=== PATIENT | male | born 1950 | race Caucasian/White ===

== ENCOUNTER 2020-01-31 10:49 | Outpatient (CLI) | payer MEDICARE, OTHER, SELFPAY | END 2020-01-31 10:50 | disposition home or self-care (01) | PROVIDERS: Family Provider Family Medicine; PCP Family Medicine; Visit Provider Family Medicine | DX: E11.59 Type 2 diabetes mellitus with other circulatory complications (principal); Z79.4 Long term (current) use of insulin | CPT/HCPCS: 36415; 82985 ==

== ENCOUNTER → 2020-07-04 10:22 | Outpatient (BNVA) | payer MEDICARE, OTHER, SELFPAY | PROVIDERS: Family Provider Family Medicine; PCP Family Medicine; Visit Provider Registered Nurse | DX: E11.9 Type 2 diabetes mellitus without complications (principal); E03.9 Hypothyroidism, unspecified | CPT/HCPCS: 80053; 80061; 82306; 83036; 83721; 84443; 85025 ==

== ENCOUNTER → 2020-08-28 11:24 | Outpatient (BNVA) | payer MEDICARE, OTHER, SELFPAY | PROVIDERS: Family Provider Family Medicine; PCP Family Medicine; Visit Provider Nurse Practitioner Family | DX: E78.1 Pure hyperglyceridemia (principal); E11.9 Type 2 diabetes mellitus without complications | CPT/HCPCS: 84443; 84478 ==

== ENCOUNTER → 2021-02-19 11:05 | Outpatient (BNVA) | payer MEDICARE, OTHER, SELFPAY | PROVIDERS: Family Provider Family Medicine; PCP Family Medicine; Visit Provider Nurse Practitioner Family | DX: E11.9 Type 2 diabetes mellitus without complications (principal); I10 Essential (primary) hypertension; E78.5 Hyperlipidemia, unspecified; E03.9 Hypothyroidism, unspecified; Z12.5 Encounter for screening for malignant neoplasm of prostate; Z79.01 Long term (current) use of anticoagulants; Z51.81 Encounter for therapeutic drug level monitoring | CPT/HCPCS: 80053; 80061; 82043; 83036; 84443; 85025; G0103 ==

== ENCOUNTER → 2021-05-20 10:23 | Outpatient (BNVA) | payer MEDICARE, OTHER, SELFPAY | PROVIDERS: Family Provider Family Medicine; PCP Nurse Practitioner Family; Visit Provider Nurse Practitioner Family | DX: N28.9 Disorder of kidney and ureter, unspecified (principal); E11.9 Type 2 diabetes mellitus without complications; R06.09 Other forms of dyspnea; I10 Essential (primary) hypertension; E03.9 Hypothyroidism, unspecified; M25.50 Pain in unspecified joint; Z79.01 Long term (current) use of anticoagulants; Z79.899 Other long term (current) drug therapy | CPT/HCPCS: 80053; 83036; 84443; 85025; 86038; 86431 ==

== ENCOUNTER 2021-07-22 10:23 | Outpatient (CLI) | payer MEDICARE, OTHER, SELFPAY ==
[2021-07-22 10:50] LABS: Basophils % 0.4 %; Eosinophils # 0.4 10^3/uL (0.0-0.8); Eosinophils % 5.5 %; Hemoglobin 12.9 g/dL (11.7-16.6); Lymphocytes # 1.8 10^3/uL (0.8-4.8); Lymphocytes % 23.5 %; Mean Corpuscular HGB Conc 32.3 g/dL (30.0-36.0); Mean Corpuscular Hemoglobin 28.4 pg (28.0-34.0); Mean Corpuscular Volume 88.1 fl (80-94); Monocytes # 0.4 10^3/uL (0.2-0.9); Monocytes % 5.4 %; Neutrophils # 5.02 10^3/uL (1.8-7.7); Neutrophils % 64.7 %; Nucleated Red Blood Cells % 0 %; Platelet Count 226 10^3/cmm (130-400); Red Blood Count 4.54 10^6/uL (4.1-5.3); Red Cell Distribution Width 12.8 % (12.1-15.1); White Blood Count 7.8 10^3/uL (4.0-10.0)
[2021-07-23 11:32] LABS: Anti-Double Strand DNA AB 1 IU/mL; Jo-1 Antibody <1.0 NEG AI (<1.0 NEG); SM/RNP Antibodies <1.0 NEG AI (<1.0 NEG); SS-B/LA IGG <1.0 NEG AI (<1.0 NEG); Scleroderma Ab(Scl-70) Ab <1.0 NEG AI (<1.0 NEG); Ss-A/Ro Igg <1.0 NEG AI (<1.0 NEG)
[2021-07-23 15:43] LABS: Immunoglobulin E 361 kU/L (<OR=114)
== END 2021-07-22 10:24 | disposition home or self-care (01) ==
LOC: LAB 10:32
PROVIDERS: PCP Nurse Practitioner Family; Visit Provider Internal Medicine Pulmonary Disease
DX: J84.9 Interstitial pulmonary disease, unspecified (principal); R06.00 Dyspnea, unspecified; R06.02 Shortness of breath
CPT/HCPCS: 36415; 82785; 85025; 86225; 86235

== ENCOUNTER → 2021-08-20 00:01 | Outpatient (BNVA) | payer MEDICARE, OTHER, SELFPAY | PROVIDERS: PCP Nurse Practitioner Family; Visit Provider Nurse Practitioner Family | DX: E03.9 Hypothyroidism, unspecified (principal); E11.9 Type 2 diabetes mellitus without complications; I10 Essential (primary) hypertension | CPT/HCPCS: 80053; 83036; 84443 ==

== ENCOUNTER → 2021-08-22 09:29 | Outpatient (BNVA) | payer MEDICARE, OTHER, SELFPAY | PROVIDERS: PCP Nurse Practitioner Family; Visit Provider Internal Medicine Pulmonary Disease | DX: Z01.812 Encounter for preprocedural laboratory examination (principal); Z20.822 Contact with and (suspected) exposure to COVID-19 | CPT/HCPCS: 87635 ==

== ENCOUNTER 2021-08-28 08:00 | Outpatient (CLI) | payer MEDICARE, OTHER, SELFPAY ==
--- NOTE | 2021-08-28 10:45 | PFTS_ITS ---
Date of Study:08/28/21 Date of Dictation: MECHANICS: Forced vital capacity (FVC) is normal. Forced expiratory volume in one second (FEV1) is normal. FEV1/FVC is normal. FLOW VOLUME LOOP: Normal. LUNG VOLUMES: Total lung capacity (TLC) is normal. Residual volume (RV) is increased. DIFFUSING CAPACITY FOR CARBON MONOXIDE: Normal. INTERPRETATION: The prebronchodilator spirometry is normal. Lung volumes are consistent with air trapping. Gas exchange (DLCO) is normal. MTDD
== END 2021-08-28 08:01 | disposition home or self-care (01) ==
LOC: RT 08:03
PROVIDERS: PCP Nurse Practitioner Family; Visit Provider Internal Medicine Pulmonary Disease
DX: R06.00 Dyspnea, unspecified (principal)
CPT/HCPCS: 94010; 94618; 94726; 94729

== ENCOUNTER 2021-08-30 08:19 | Outpatient (CLI) | payer MEDICARE, OTHER, SELFPAY ==
[2021-08-30] MEDS: iohexol 300 mg/mL 100 mL Btl IV (08:58)
[2021-08-30] MEDS: iohexol 300 mg/mL 50 mL Btl PO (08:58)
--- NOTE | 2021-08-30 10:00 | CT_ITS ---
WS: [id number] CT scan of the abdomen with Oral and IV contrast. Additional two-dimensional coronal and sagittal rec onstruction was performed. 08/30/2021 Clinical Data: R10.9 - Unspecified abdominal pain Comparison: None. DLP: 879.[address] scans at [facility] use at least one of these dose optimization techniques: automated e xposure control; mA and/or kV adjustment per patient size (includes targeted exams where dose is matc hed to clinical indication); or iterative reconstruction. Findings: The lower lungs show no nodules, masses or effusions. The liver, gallbladder, spleen, adrenal glands and pancreas are normal. The kidneys show equal bilateral contrast excretion with no cyst or masses. The abdominal aorta is normal in size with minimal calcification and mural thrombus. No appendicitis or diverticulitis is seen. Oral contrast is in the stomach and small bowel and there is no bowel dilatation. No abscess, adenopathy, ascites, mass, obstruction or free air is seen. The bones of the lower thorax and lumbar spine show osteoarthritic spurring. CT/CT abdomen w con* [id number] Impression: Negative for acute intra-abdominal abnormalities.
== END 2021-08-30 08:20 | disposition home or self-care (01) ==
PROVIDERS: PCP Nurse Practitioner Family; Visit Provider Nurse Practitioner Family
DX: R10.9 Unspecified abdominal pain (principal)
CPT/HCPCS: 74160; Q9967

== ENCOUNTER 2021-09-18 13:13 | Outpatient (CLI) | payer MEDICARE, OTHER, SELFPAY ==
[2021-09-18 14:13] LABS: C Reactive Protein 0.3 mg/L (0.0-4.9); Creatine Phosphokinase 87 U/L (39-308)
[2021-09-20 12:48] LABS: Aldolase 2.5 U/L (< OR = 8.1)
[2021-09-20 14:27] LABS: Alternaria Alternata (M6) Ige 0.13 kU/L; Alternaria Class 0/1; Bermuda Class 0; Bermuda Grass (G2) Ige <0.10 kU/L; Cat Dander (E1) Ige <0.10 kU/L; Cat Dander Class 0; Common Ragweed (Short) (W1) Ig <0.10 kU/L; D. Farinae Class 0; Dermatophagoides Class 0; Dermatophagoides Farinae (D2) <0.10 kU/L; Dermatophagoides Pteronyssinus <0.10 kU/L; Dog Dander (E5) Ige <0.10 kU/L; Dog Dander Class 0; Elm (T8) Ige <0.10 kU/L; Elm Class 0; English Plantain (W9) Ige <0.10 kU/L; English Plantain Class 0; House Dust (Greer) (H1) Ige <0.10 kU/L; House Dust (Hollister- Stier) <0.10 kU/L; House Dust Class 0; Immunoglobulin E 291 kU/L (<OR=114); Johnson Grass (G10) Ige <0.10 kU/L; Johnson Grass Cl 0; June Grass Class 0; June Grass(Kentucky Blue) (G8) <0.10 kU/L; Lamb'S Quarters (Goose Foot) <0.10 kU/L; Lamb'S Quarters Class 0; Maple (Box Elder) (T1) Ige <0.10 kU/L; Maple Class 0; Meadow Fescue (G4) Ige <0.10 kU/L; Meadow Fescue Class 0; Mucor Racemosus Class 0; Oak (T7) Ige <0.10 kU/L; Oak Class 0; Orchard Grass (Cocksfoot) (G3) <0.10 kU/L; Penicillium Class 0; Penicillium Notatum (M1) Ige <0.10 kU/L; Perennial Rye Grass (G5) Ige <0.10 kU/L; Perennial Rye Grass Class 0; Ragweeed Class 0; Rough Marsh Elder (W16) Ige <0.10 kU/L; Rough Marsh Elder Class 0; Sweet Vernal Class 0; Sweet Vernal Grass (G1) Ige <0.10 kU/L; Timothy Grass (G6) Ige <0.10 kU/L; Timothy Grass Class 0
[2021-09-23 12:17] LABS: Erythrocyte Sedimentation Rate 2 mm/hr (0-10)
[2021-09-25 19:32] LABS: Aspergillus Fumigatus, Igg Ab, 11.4 mg/L (<=102)
== END 2021-09-18 13:14 | disposition home or self-care (01) ==
LOC: LAB 13:18
PROVIDERS: Internal Medicine Pulmonary Disease; PCP Nurse Practitioner Family; Visit Provider Nurse Practitioner Family
DX: M25.641 Stiffness of right hand, not elsewhere classified (principal); M25.642 Stiffness of left hand, not elsewhere classified; R06.02 Shortness of breath; T78.40XA Allergy, unspecified, initial encounter
CPT/HCPCS: 36415; 82085; 82550; 82785; 83516; 85651; 86003; 86140

== ENCOUNTER → 2021-11-08 10:54 | Outpatient (BNVA) | payer MEDICARE, OTHER, SELFPAY | PROVIDERS: PCP Nurse Practitioner Family; Visit Provider Nurse Practitioner Family | DX: R05.9 Cough, unspecified (principal); Z20.822 Contact with and (suspected) exposure to COVID-19; E11.9 Type 2 diabetes mellitus without complications | CPT/HCPCS: 87486; 87581; 87633 ==

== ENCOUNTER 2021-11-16 12:02 | Outpatient (CLI) | payer MEDICARE, OTHER, SELFPAY ==
[2021-11-16 13:15] LABS: Creatinine Urine, Random 169 mg/dL (39-259)
[2021-11-16 13:19] LABS: Anion Gap 16.4 (5-19); Blood Urea Nitrogen 40 mg/dL (8-23); Calcium 8.9 mg/dL (8.5-10.5); Carbon Dioxide 26 mmol/L (22-29); Chloride 98 mmol/L (98-107); Glomerular Filtration Rate 46.3 mL/min (90-130); Glucose 154 mg/dL (65-115); Phosphorus 4.3 mg/dL (2.5-4.5); Potassium 4.4 mmol/L (3.5-5.1); Sodium 136 mmol/L (136-145)
[2021-11-16 13:38] LABS: Calcium 9.8 mg/dL (8.5-10.5)
[2021-11-16 13:45] LABS: Parathyroid Hormone 24.3 pg/mL (15-65)
== END 2021-11-16 12:03 | disposition home or self-care (01) ==
PROVIDERS: PCP Nurse Practitioner Family; Visit Provider Internal Medicine Nephrology
DX: N18.31 Chronic kidney disease, stage 3a (principal)
CPT/HCPCS: 80069; 82310; 82575; 83970

== ENCOUNTER 2021-12-23 07:06 | Outpatient (CLI) | payer MEDICARE, OTHER, SELFPAY ==
--- NOTE | 2021-12-23 07:29 | US_ITS ---
WS: [id number] RENAL ULTRASOUND HISTORY: STAGE 3A CHRONIC KIDNEY DZ COMPARISON: None available. TECHNIQUE: 2-D and color Doppler imaging of the kidney submitted. Right kidney: 10.5 cm x 4.0 cm x 5.4 cm. Normal echogenicity with no hydronephrosis or mass. Left kidney: 9.5 cm x 4.3 cm x 4.4 cm. Normal echogenicity with no hydronephrosis or mass. Aorta: Normal. Urinary Bladder: Normal distention. Mildly enlarged heterogeneous prostate gland. Prostate measures 4.4 x 4.0 x 4.5 cm. Variable echogeni [place] throughout the prostate gland and the surface is lobulated. US/US renal BI* [id number] IMPRESSION: 1. Normal renal ultrasound. 2. Mildly enlarged heterogeneous prostate gland.
== END 2021-12-23 07:07 | disposition home or self-care (01) ==
PROVIDERS: PCP Nurse Practitioner Family; Visit Provider Internal Medicine Nephrology
DX: N18.31 Chronic kidney disease, stage 3a (principal); N40.0 Benign prostatic hyperplasia without lower urinary tract symptoms
CPT/HCPCS: 76770

== ENCOUNTER → 2021-12-30 10:14 | Outpatient (BNVA) | payer MEDICARE, OTHER, SELFPAY | PROVIDERS: PCP Nurse Practitioner Family; Visit Provider Internal Medicine Pulmonary Disease | DX: R06.00 Dyspnea, unspecified (principal); E03.9 Hypothyroidism, unspecified; E11.22 Type 2 diabetes mellitus with diabetic chronic kidney disease; J45.40 Moderate persistent asthma, uncomplicated; T78.40XA Allergy, unspecified, initial encounter; M25.641 Stiffness of right hand, not elsewhere classified; M25.642 Stiffness of left hand, not elsewhere classified; I10 Essential (primary) hypertension; E78.5 Hyperlipidemia, unspecified; Z87.891 Personal history of nicotine dependence; X58.XXXA Exposure to other specified factors, initial encounter; Z79.01 Long term (current) use of anticoagulants | CPT/HCPCS: 99214 ==

== ENCOUNTER → 2022-03-28 08:45 | Outpatient (BNVA) | payer MEDICARE, OTHER, SELFPAY | PROVIDERS: PCP Nurse Practitioner Family; Visit Provider Nurse Practitioner Family | DX: E78.5 Hyperlipidemia, unspecified (principal); I10 Essential (primary) hypertension; E11.22 Type 2 diabetes mellitus with diabetic chronic kidney disease; R53.83 Other fatigue; E03.9 Hypothyroidism, unspecified | CPT/HCPCS: 80053; 80061; 83036; 84443; 85025 ==

== ENCOUNTER 2022-05-03 10:20 | Outpatient (CLI) | payer MEDICARE, OTHER, SELFPAY ==
[2022-05-03 10:51] LABS: Basophils % 0.5 %; Eosinophils # 0.2 10^3/uL (0.0-0.8); Eosinophils % 2.5 %; Hematocrit 38.4 % (42.0-52.0); Hemoglobin 12.2 g/dL (11.7-16.6); Lymphocytes # 1.6 10^3/uL (0.8-4.8); Lymphocytes % 26.5 %; Mean Corpuscular HGB Conc 31.8 g/dL (30.0-36.0); Mean Corpuscular Hemoglobin 28.2 pg (28.0-34.0); Mean Corpuscular Volume 88.9 fl (80-94); Mean Platelet Volume 9.4 fL (7.4-10.4); Monocytes # 0.4 10^3/uL (0.2-0.9); Monocytes % 6.7 %; Neutrophils # 3.77 10^3/uL (1.8-7.7); Neutrophils % 63.1 %; Nucleated Red Blood Cells % 0 %; Platelet Count 185 10^3/cmm (130-400); Red Blood Count 4.32 10^6/uL (4.1-5.3); Red Cell Distribution Width 12.7 % (12.1-15.1)
[2022-05-03 11:06] LABS: Urine Creatinine 128 mg/dL (39-259)
[2022-05-03 11:08] LABS: Albumin Level 4.4 g/dL (3.5-5.2); Anion Gap 13.4 (5-19); Blood Urea Nitrogen 18 mg/dL (8-23); Calcium 9.4 mg/dL (8.5-10.5); Carbon Dioxide 27 mmol/L (22-29); Chloride 104 mmol/L (98-107); Glucose 128 mg/dL (65-115); Phosphorus 3.2 mg/dL (2.5-4.5); Potassium 4.4 mmol/L (3.5-5.1); Sodium 140 mmol/L (136-145)
[2022-05-03 11:17] LABS: Calcium 9.2 mg/dL (8.5-10.5)
[2022-05-03 11:40] LABS: Parathyroid Hormone 50.9 pg/mL (15-65)
== END 2022-05-03 10:21 | disposition home or self-care (01) ==
PROVIDERS: PCP Nurse Practitioner Family; Visit Provider Internal Medicine Nephrology
DX: N18.31 Chronic kidney disease, stage 3a (principal)
CPT/HCPCS: 80069; 82310; 82570; 83970; 85025

== ENCOUNTER → 2022-05-14 10:02 | Outpatient (BNVA) | payer MEDICARE, OTHER, SELFPAY | PROVIDERS: PCP Nurse Practitioner Family; Visit Provider Nurse Practitioner Family | DX: N40.0 Benign prostatic hyperplasia without lower urinary tract symptoms (principal); Z12.5 Encounter for screening for malignant neoplasm of prostate | CPT/HCPCS: G0103 ==

== ENCOUNTER → 2022-06-25 09:46 | Outpatient (BNVA) | payer MEDICARE, OTHER, SELFPAY | PROVIDERS: PCP Nurse Practitioner Family; Visit Provider Nurse Practitioner Family | DX: R33.9 Retention of urine, unspecified (principal) | CPT/HCPCS: 51741; 51798; 81003; 99203 ==

== ENCOUNTER → 2022-12-01 10:44 | Outpatient (BNVA) | payer MEDICARE, OTHER, SELFPAY | PROVIDERS: PCP Nurse Practitioner Family; Visit Provider Nurse Practitioner Family | DX: E03.9 Hypothyroidism, unspecified (principal); E78.1 Pure hyperglyceridemia; E78.5 Hyperlipidemia, unspecified; I10 Essential (primary) hypertension; J45.40 Moderate persistent asthma, uncomplicated; Z79.899 Other long term (current) drug therapy; E11.8 Type 2 diabetes mellitus with unspecified complications | CPT/HCPCS: 80053; 80061; 83036; 84443; 85025 ==

== ENCOUNTER → 2023-03-04 16:26 | Outpatient (BNVA) | payer MEDICARE, OTHER, SELFPAY | PROVIDERS: PCP Nurse Practitioner Family; Visit Provider Nurse Practitioner Family | DX: E11.22 Type 2 diabetes mellitus with diabetic chronic kidney disease (principal); I10 Essential (primary) hypertension | CPT/HCPCS: 80053 ==

== ENCOUNTER → 2023-11-04 09:44 | Outpatient (BNVA) | payer MEDICARE, OTHER, SELFPAY | PROVIDERS: PCP Nurse Practitioner Family; Visit Provider Nurse Practitioner Family | DX: I10 Essential (primary) hypertension (principal); E03.9 Hypothyroidism, unspecified; E11.22 Type 2 diabetes mellitus with diabetic chronic kidney disease; R53.83 Other fatigue; R11.0 Nausea; E78.2 Mixed hyperlipidemia | CPT/HCPCS: 80053; 83036; 84443; 85025 ==

== ENCOUNTER 2023-12-10 14:48 | Outpatient (CLI) | payer MEDICARE, OTHER, SELFPAY ==
[2023-12-10 15:14] LABS: Basophils % 0.4 %; Eosinophils # 0.2 10^3/uL (0.0-0.8); Hematocrit 37.5 % (37-53); Lymphocytes # 1.8 10^3/uL (0.8-4.8); Lymphocytes % 26.8 %; Mean Corpuscular HGB Conc 32.8 g/dL (30-55); Mean Corpuscular Hemoglobin 28.9 pg (27-33); Mean Corpuscular Volume 88.2 fl (82-101); Mean Platelet Volume 9.4 fL (7.4-10.4); Monocytes # 0.5 10^3/uL (0.2-0.9); Monocytes % 7.9 %; Neutrophils % 61.3 %; Nucleated Red Blood Cells % 0 %; Platelet Count 219 10^3/cmm (157-399); Red Blood Count 4.25 10^6/uL (3.85-5.65); Red Cell Distribution Width 12.4 % (12.1-15.1); White Blood Count 6.69 10^3/uL (3.29-11.43)
[2023-12-10 15:38] LABS: Albumin Level 4.1 g/dL (3.5-5.2); Anion Gap 16.4 (5-19); Blood Urea Nitrogen 23 mg/dL (8-23); Calcium 9.1 mg/dL (8.5-10.5); Carbon Dioxide 23 mmol/L (22-29); Chloride 103 mmol/L (98-107); Glucose 254 mg/dL (65-115); Phosphorus 3.9 mg/dL (2.5-4.5); Potassium 4.4 mmol/L (3.5-5.1); Sodium 138 mmol/L (136-145)
[2023-12-10 15:44] LABS: Creatinine Urine, Random 196 mg/dL (39-259); Microalbum Creatinine Ratio Ur 10 mg/dL (0-20); Microalbumin Random Urine 2 ug/dL (0-20)
[2023-12-10 15:45] LABS: Calcium 9.3 mg/dL (8.5-10.5)
[2023-12-10 15:51] LABS: Parathyroid Hormone 38.4 pg/mL (15-65)
== END 2023-12-10 14:49 | disposition home or self-care (01) ==
LOC: LAB 14:54
PROVIDERS: PCP Nurse Practitioner Family; Visit Provider Internal Medicine Nephrology
DX: N18.31 Chronic kidney disease, stage 3a (principal)
CPT/HCPCS: 36415; 80069; 82044; 82310; 83970; 85025

== ENCOUNTER → 2024-01-04 08:47 | Outpatient (BNVA) | payer MEDICARE, OTHER, SELFPAY | PROVIDERS: PCP Nurse Practitioner Family; Visit Provider Nurse Practitioner Family | DX: I10 Essential (primary) hypertension (principal); E78.2 Mixed hyperlipidemia | CPT/HCPCS: 80061 ==

== ENCOUNTER → 2024-01-25 15:20 | Outpatient (BNVA) | payer MEDICARE, OTHER, SELFPAY | PROVIDERS: PCP Nurse Practitioner Family; Visit Provider Nurse Practitioner Family | DX: R06.00 Dyspnea, unspecified (principal); K21.9 Gastro-esophageal reflux disease without esophagitis | CPT/HCPCS: 93005 ==

== ENCOUNTER 2024-02-01 12:34 | Outpatient (CLI) | payer MEDICARE, OTHER, SELFPAY ==
--- NOTE | 2024-02-01 12:37 | XR_ITS ---
WS: [id number] CHEST 2 VIEWS HISTORY: R05.9 - Cough, unspecified COMPARISON: None available. Lungs: Mild pulmonary hyperexpansion. No mass or nodule. Cardiac size: Normal. Mediastinum/Aorta: Normal mediastinum. Bones: Mild degenerative changes in the spine. IMPRESSION: No acute cardiopulmonary disease.
--- NOTE | 2024-02-01 13:00 | USCV_ITS ---
Keshav Verma Age: 73 Gender: M : 1950 Exam Date: 02/01/2024 12:55 Ordering Phys: Milagros Edwards Technologist: CITLALI [place] [facility] [place]: dyspnea, unspecified BP: 158 / 84 HR: 57 Rhythm: Sinus Technical Quality: Good MEASUREMENTS (Male / Female) Normal Values 2D ECHO LV Diastolic Diameter PLAX 5.3 cm 4.2 - 5.9 / 3.9 - 5.3 cm IVS Diastolic Thickness 1.3 cm 0.6 - 1.0 / 0.6 - 0.9 cm IVS Systolic Thickness 1.8 cm LVPW Diastolic Thickness 1.1 cm 0.6 - 1.0 / 0.6 - 0.9 cm LVPW Systolic Thickness 2.2 cm LVOT Diameter 2.0 cm LV Ejection Fraction 2D Teich 79.3 % LV Ejection Fraction MOD 2C 64.7 % LV Ejection Fraction 2C AL 64.3 % LA Diameter 3.7 cm RA Systolic Volume 4C AL 17.6 ml RA Systolic Volume 4C MOD 16.7 ml LA Sys Volume AL 52.3 cm cubed LA Sys Volume Index AL 25.3 cm cubed/m squared Aorta at Sinotubular Diameter 3.0 cm IVC Diameter 1.7 cm M-MODE LA Ao Ratio MM 1.1 AV Cusp Separation MM 1.8 cm DOPPLER AV Peak Velocity 151.0 cm/s LVOT Peak Velocity 106.0 cm/s AV Area Cont Eq vti 2.8 cm squared AV Area Cont Eq pk 2.3 cm squared MV Peak Velocity 93.0 cm/s MV Area PHT 2.5 cm squared Mitral E to A Ratio 0.9 TV Peak Velocity 86.0 cm/s TR Peak Velocity 88.0 cm/s TR Peak Gradient 3.1 mmHg TR Mean Velocity 61.0 cm/s TR Mean Gradient 1.7 mmHg TR Velocity Time Integral 19.1 cm TV Peak E Velocity 60.0 cm/s Right Atrial Pressure 3.0 mmHg Pulmonary Artery Systolic Pressu 6.1 mmHg PV Peak Velocity 89.5 cm/s RV Ejection Time 0.3 s FINDINGS Left Ventricle Normal left ventricular size and systolic function, EF 64%.no regional wall motion abnormalities. Mild left ventricular hypertrophy. Grade I/IV diastolic dysfunction (abnormal relaxation filling pattern), normal to mildly elevated filling pressures. Right Ventricle The right ventricle is normal in size and function. Right Atrium The right atrium is normal in size. Left Atrium The left atrium is normal in size. Mitral Valve No gross abnormalities noted Aortic Valve No gross abnormalities noted Tricuspid Valve No gross abnormalities noted Pulmonic Valve Mild pulmonary valve regurgitation. Pericardium Normal pericardium without effusion. Aorta Normal ascending aorta dimension. IVC The inferior vena cava appears normal. CONCLUSIONS Normal left ventricular size and systolic function, EF 64%.no regional wall motion abnormalities. Mild left ventricular hypertrophy. Grade I/IV diastolic dysfunction (abnormal relaxation filling pattern), normal to mildly elevated filling pressures. Mild pulmonary valve regurgitation. No significant valvular abnormalities. Normal cardiac chamber sizes. There is no pericardial effusion. There are no intracardiac masses. No similar previous studies are available for comparison Dr Sara Kendrick MD [facility] (Electronically Signed) Final Date: 01 February 2024 17:57 S
== END 2024-02-01 12:35 | disposition home or self-care (01) ==
LOC: RAD 12:35
PROVIDERS: PCP Nurse Practitioner Family; Visit Provider Nurse Practitioner Family
DX: R06.00 Dyspnea, unspecified (principal); R05.9 Cough, unspecified; I51.7 Cardiomegaly; I37.1 Nonrheumatic pulmonary valve insufficiency
CPT/HCPCS: 71046; 93306; 99204

== ENCOUNTER 2024-02-04 09:56 | Outpatient (CLI) | payer MEDICARE, OTHER, SELFPAY ==
--- NOTE | 2024-02-04 10:15 | US_ITS ---
WS: [id number] RIGHT UPPER QUADRANT ULTRASOUND HISTORY: abdominal pain COMPARISON: None available. Liver: 16.4 cm in length. Normal size liver and echogenicity. No bile duct dilatation or mass. Portal Vein: Normal hepatopetal flow with monophasic waveform. Gallbladder: Normally distended gallbladder with no stones or wall thickening. CBD: 0.4 cm Pancreas: Completely obscured by bowel gas. Right kidney: 10.3 cm in length. Normal size and echogenicity. No hydronephrosis or mass. Aorta and IVC: Unremarkable abdominal aorta and IVC. No ascites. IMPRESSION: 1. Negative gallbladder. 2. Pancreas is obscured by bowel gas. 3. No bile duct dilatation.
== END 2024-02-04 09:57 | disposition home or self-care (01) ==
PROVIDERS: PCP Nurse Practitioner Family; Visit Provider Surgery
DX: R10.9 Unspecified abdominal pain (principal)
CPT/HCPCS: 76705

== ENCOUNTER → 2024-02-08 14:18 | Outpatient (BNVA) | payer MEDICARE, OTHER, SELFPAY | PROVIDERS: PCP Nurse Practitioner Family; Visit Provider Nurse Practitioner Family | DX: E11.22 Type 2 diabetes mellitus with diabetic chronic kidney disease (principal); R42 Dizziness and giddiness; R06.00 Dyspnea, unspecified; L98.9 Disorder of the skin and subcutaneous tissue, unspecified; Z98.890 Other specified postprocedural states | CPT/HCPCS: 82962 ==

== ENCOUNTER 2024-02-16 14:58 | Outpatient (CLI) | payer MEDICARE, OTHER, SELFPAY ==
--- NOTE | 2024-02-16 15:15 | USCV_ITS ---
Keshav Verma Age: 73 Gender: M : 1950 Exam Date: 02/16/2024 15:10 Ordering Phys: Milagros Edwards Technologist: MARIA ESTHER Exam Location: [facility] – [place] Indication: cca disease Risk Factors: Previous Vascular Surgery: Right Brachial BP: / Left Brachial BP: / Right Left Velocity (cm/s) Spectral Plaque Velocity (cm/s) Spectral Plaque Syst/Diast Broadening Syst/Diast Broadening 67.20/ 16.70 Prox CCA 62.40 / 18.60 68.50/ 16.70 Mid CCA 78.90 / 24.10 72.40/ 18.00 Hetro Distal CCA 78.90 / 16.80 Hetro 188.70/53.50 Hetro Prox ICA 116.30/ 34.40 Hetro 153.20/42.90 Mid ICA 198.30/ 37.50 131.20/36.60 Distal ICA 44.50 / 15.80 88.10 ECA 147.80 2.60 ICA/CCA 2.50 Antegrade Vertebral Antegrade 69.70/ 24.10 cm/s 69.00/ 15.40 cm/s Tri Subclavian Tri 96.00 121.0 0 FINDINGS Comparison: none available. Diffuse bilateral scattered calcified plaque and intimal thickening throughout the common carotid arteries and extending through the bifurcation. Moderate elevation of systolic velocities. Antegrade vertebral arteries. CONCLUSIONS Left ICA stenosis 50-69%. Right ICA stenosis 50-69%. Moderate carotid atherosclerosis. Dr. Reina Hayes DO (Electronically Signed) Final Date: 17 February 2024 07:43 S
== END 2024-02-16 14:59 | disposition home or self-care (01) ==
LOC: RAD 14:58
PROVIDERS: PCP Nurse Practitioner Family; Visit Provider Nurse Practitioner Family
DX: R42 Dizziness and giddiness (principal); I65.23 Occlusion and stenosis of bilateral carotid arteries
CPT/HCPCS: 93880

== ENCOUNTER 2024-02-17 09:15 | Outpatient (CLI) | payer MEDICARE, OTHER, SELFPAY ==
--- NOTE | 2024-02-17 10:00 | NM_ITS ---
WS: [email or web address] NUCLEAR MEDICINE HIDA SCAN CLINICAL INFORMATION: RUQ pain TECHNIQUE: Following intravenous administration of 8.2 mCi of technetium 99m mebrofenin, images of th e abdomen were obtained over the course of 60 minutes. Next, gallbladder ejection fraction was determ ined by obtaining preprandial and one-hour postprandial images of the gallbladder following oral rneée stion of Ensure. COMPARISON: Ultrasound 02/04/2024 FINDINGS: Normal hepatic uptake. Gallbladder is visualized by 10 minutes. No evidence of acute cholecystitis. N ormal common bile duct and small bowel activity. Normal hepatic excretion. Gallbladder ejection fraction 83% within normal limits. No evidence of chronic cholecystitis. IMPRESSION: 1. No evidence of acute or chronic cholecystitis. 2. Gallbladder ejection fraction 83% within normal limits.
== END 2024-02-17 09:16 | disposition home or self-care (01) ==
LOC: RAD 09:16
PROVIDERS: PCP Nurse Practitioner Family; Visit Provider Surgery
DX: R10.11 Right upper quadrant pain (principal)
CPT/HCPCS: 78227; A9537

== ENCOUNTER → 2024-03-04 09:06 | Outpatient (BNVA) | payer MEDICARE, OTHER, SELFPAY | PROVIDERS: PCP Nurse Practitioner Family; Visit Provider Nurse Practitioner Family | DX: L57.0 Actinic keratosis (principal); L82.0 Inflamed seborrheic keratosis; L60.3 Nail dystrophy; L82.1 Other seborrheic keratosis; L98.8 Other specified disorders of the skin and subcutaneous tissue; D22.5 Melanocytic nevi of trunk; L85.3 Xerosis cutis; L57.8 Other skin changes due to chronic exposure to nonionizing radiation | CPT/HCPCS: 17000; 17110; 99203 ==

== ENCOUNTER 2024-03-09 09:16 | Day surgery (SDC) | payer MEDICARE, OTHER, SELFPAY ==
[2024-03-09] MEDS: sodium chloride 0.9% 1,000 ML 30 ML IV (09:55)
[2024-03-09 09:56] VITALS: BP 177/82; PULSE 63; RESP 18; TEMP 36.2; O2SAT 97
[2024-03-09 10:01] LABS: Glucose Point of Care 121 mg/dL (70-110)
--- NOTE | 2024-03-09 10:48 | ANES.PREANE2 ---
Pre-Anesthetic Assessment Height/Weight: Height 1.83 m Weight 81.647 kg Temp Pulse Resp BP Pulse Ox O2 Del Method 97.1 F L 63 18 177/82 97 Room Air 03/09/24 09:56 03/09/24 09:56 03/09/24 09:56 03/09/24 09:56 03/09/24 09:56 03/09/24 09:56 Preop Diagnosis: screening, gerd Operation Date: 03/09/24 10:45 Proposed Procedures p EGD 63672, 47635, G0105, R11.2 ,12.11(Not Applicable) - Silas Davison DO s Colonoscopy(Not Applicable) - Silas Davison DO Familial anesthetic complications: none Was Beta Arianna taken within 24 hours: Yes Was Clonidine taken within 24 hours: N/A Last intake: Intake Last Liquid Date 03/08/24 Last Liquid Time 22:00 Last Solid Date 03/07/24 Last Solid Time 19:00 Social No alcohol and No tobacco previous smoker, quit 30 years ago Exam alert, oriented x 3 and clear to auscultation bilaterally Airway Mallampati: Class II Dentition: false History/ROS No significant history except as noted Pulmonary Chronic Obstructive Pulmonary Disease CV/HEM Coronary Artery Disease (stents 3 years ago) and Hypertension None reported Hepatic None reported GI Gastroesophageal Reflux Disease Metabolic Diabetes Mellitus, Hyperlipidemia and Thyroid Disease [facility] [place] None reported Neuropsych None reported Anesthetic Plan ASA status: 3 Anesthesia: Anesthesia Evaluation and MAC Risk of > 500 ml blood loss (7ml/kg in children): No Medications/Allergies Home Medications Medication Instructions Recorded Confirmed Last Taken Type aspirin 81 mg tablet,delayed 81 mg PO DAILY 11/28/19 03/08/24 03/05/24 History release cholecalciferol (vitamin D3) 1,250 1,250 mcg PO DAILY 11/28/19 03/08/24 03/07/24 History mcg (50,000 unit) capsule nitroglycerin 0.4 mg sublingual 0.4 mg sublingual Q5M PRN Chest 11/28/19 03/08/24 Unknown History tablet (Nitrostat) Pain ranolazine 500 mg tablet,extended 500 mg PO BID 06/25/22 03/08/24 03/07/24 History release,12 hr lancets 17 gauge #100 ea 08/19/23 02/24/24 Unknown Rx blood sugar diagnostic (Blood #50 ea 09/03/23 02/24/24 Unknown Rx Glucose Test strips) blood-glucose meter (Blood Glucose #1 ea 09/03/23 02/24/24 Unknown Rx Monitoring kit) pantoprazole 40 mg tablet,delayed 40 mg PO BID 6 weeks #84 tabs 02/01/24 03/08/24 03/07/24 Rx release (Protonix) albuterol sulfate 90 mcg/actuation 2 puff inhalation Q6H PRN 02/08/24 03/08/24 Unknown Rx aerosol inhaler shortness of breath or wheezing #6.7 grams meclizine 25 mg tablet 25 mg PO BID PRN dizziness #60 tabs 02/08/24 03/08/24 03/07/24 Rx insulin degludec 200 unit/mL (3 See Rx Instructions .Route 03/07/24 03/08/24 03/07/24 Rx mL) subcutaneous pen .COMPLEX #27 mL clopidogrel 75 mg tablet 75 mg PO DAILY 03/08/24 03/08/24 03/05/24 History dulaglutide 1.5 mg/0.5 mL 1.5 mg SUBCUT .WEEKLY 03/08/24 03/08/24 02/28/24 History subcutaneous pen injector (Trulicity) levothyroxine 100 mcg tablet 100 mcg PO DAILY 03/08/24 03/08/24 03/09/24 History metformin 500 mg tablet,extended 1,000 mg PO BID 03/08/24 03/08/24 03/07/24 History release 24 hr metoprolol succinate 25 mg 25 mg PO DAILY 03/08/24 03/08/24 03/09/24 History tablet,extended release 24 hr omeprazole 20 mg capsule,delayed 20 mg PO DAILY 03/08/24 03/08/24 03/07/24 History release ondansetron HCl 4 mg tablet 4 mg PO Q8H PRN Nausea 03/08/24 03/08/24 Unknown History rosuvastatin 40 mg tablet 40 mg PO DAILY 03/08/24 03/08/24 03/07/24 History tamsulosin 0.4 mg capsule 0.8 mg PO DAILY 03/08/24 03/08/24 03/07/24 History Allergies Allergy/AdvReac Type Severity Reaction Status Date / Time No Known Allergies Allergy Verified 03/09/24 09:28 Current Medications Generic Name Dose Route Start Last Admin Trade Name Jyotsna PRN Reason Stop Dose Admin Sodium Chloride 1,000 mls @ 30 mls/hr 03/09/24 09:30 03/09/24 09:55 Sodium Chloride 0.9% IV 03/10/24 09:29 30 mls/hr .Q24H PRO Administration PFSH Anesthesia Medical History Nocturnal polyuria Hypertriglyceridemia Hyperlipidemia Hypothyroid Diabetes Essential hypertension Surgical History Hx of colonoscopy History of shoulder surgery Family History Father , at age 80's Hypertension CAD (coronary artery disease) Mother , at age 75 Parkinson disease Social History Smoking and tobacco/nicotine status: former use of tobacco/nicotine Quit status (tobacco/nicotine): has quit using Year quit tobacco: 2000 Former quit date comment: 0.5ppd x 20 years Second hand smoke exposure: No Alcohol intake: never Substance/Drug Use: never Current occupational status: retired Data Anesthesia Cardiac Studies: Echocardiogram 02/01/24
--- NOTE | 2024-03-09 11:34 | PM.HP ---
Providers/Chief Complaint Primary Care Provider: CARMELO Kim Chief Complaint: R11.2, Z12.11 History of Present Illness Keshav Verma is a 73 year old male Review of Systems General: Reports: 10 or more systems reviewed and unremarkable except in HPI and below Medications/Allergies Home Medications Medication Instructions Recorded Confirmed Last Taken Type aspirin 81 mg tablet,delayed 81 mg PO DAILY 11/28/19 03/08/24 03/05/24 History release cholecalciferol (vitamin D3) 1,250 1,250 mcg PO DAILY 11/28/19 03/08/24 03/07/24 History mcg (50,000 unit) capsule nitroglycerin 0.4 mg sublingual 0.4 mg sublingual Q5M PRN Chest 11/28/19 03/08/24 Unknown History tablet (Nitrostat) Pain ranolazine 500 mg tablet,extended 500 mg PO BID 06/25/22 03/08/24 03/07/24 History release,12 hr lancets 17 gauge #100 ea 08/19/23 02/24/24 Unknown Rx blood sugar diagnostic (Blood #50 ea 09/03/23 02/24/24 Unknown Rx Glucose Test strips) blood-glucose meter (Blood Glucose #1 ea 09/03/23 02/24/24 Unknown Rx Monitoring kit) pantoprazole 40 mg tablet,delayed 40 mg PO BID 6 weeks #84 tabs 02/01/24 03/08/24 03/07/24 Rx release (Protonix) albuterol sulfate 90 mcg/actuation 2 puff inhalation Q6H PRN 02/08/24 03/08/24 Unknown Rx aerosol inhaler shortness of breath or wheezing #6.7 grams meclizine 25 mg tablet 25 mg PO BID PRN dizziness #60 tabs 02/08/24 03/08/24 03/07/24 Rx insulin degludec 200 unit/mL (3 See Rx Instructions .Route 03/07/24 03/08/24 03/07/24 Rx mL) subcutaneous pen .COMPLEX #27 mL clopidogrel 75 mg tablet 75 mg PO DAILY 03/08/24 03/08/24 03/05/24 History dulaglutide 1.5 mg/0.5 mL 1.5 mg SUBCUT .WEEKLY 03/08/24 03/08/24 02/28/24 History subcutaneous pen injector (Trulicity) levothyroxine 100 mcg tablet 100 mcg PO DAILY 03/08/24 03/08/24 03/09/24 History metformin 500 mg tablet,extended 1,000 mg PO BID 03/08/24 03/08/24 03/07/24 History release 24 hr metoprolol succinate 25 mg 25 mg PO DAILY 03/08/24 03/08/24 03/09/24 History tablet,extended release 24 hr omeprazole 20 mg capsule,delayed 20 mg PO DAILY 03/08/24 03/08/24 03/07/24 History release ondansetron HCl 4 mg tablet 4 mg PO Q8H PRN Nausea 03/08/24 03/08/24 Unknown History rosuvastatin 40 mg tablet 40 mg PO DAILY 03/08/24 03/08/24 03/07/24 History tamsulosin 0.4 mg capsule 0.8 mg PO DAILY 03/08/24 03/08/24 03/07/24 History Allergies Allergy/AdvReac Type Severity Reaction Status Date / Time No Known Allergies Allergy Verified 03/09/24 09:28 PFSH Acute PFSH: Medical History Nocturnal polyuria Hypertriglyceridemia Hyperlipidemia Hypothyroid Diabetes Essential hypertension Surgical History Hx of colonoscopy History of shoulder surgery Family History Father , at age 80's Hypertension CAD (coronary artery disease) Mother , at age 75 Parkinson disease Social History Smoking and tobacco/nicotine status: former use of tobacco/nicotine Quit status (tobacco/nicotine): has quit using Year quit tobacco: 2000 Former quit date comment: 0.5ppd x 20 years Second hand smoke exposure: No Alcohol intake: never Substance/Drug Use: never Current occupational status: retired Vitals/I&O/Wt Last Vital Signs Temp 97.1 F L 03/09/24 09:56 Pulse 63 03/09/24 09:56 Resp 18 03/09/24 09:56 BP 177/82 03/09/24 09:56 Pulse Ox 97 03/09/24 09:56 O2 Del Method Room Air 03/09/24 09:56 Weight last 48 hrs Weight 180 lb A&P Assessment and plan (1) Chronic GERD: (2) Nausea and vomiting: (3) Colon cancer screening: Plan EGD and colonoscopy Attestations Medical Necessity Statement*: Home Coding Level of Care Code Acute Code for Chg Fwd Diagnoses Chronic GERD K21.9 Nausea and vomiting R11.2 Colon cancer screening Z12.11
[2024-03-09 11:55] VITALS: BP 160/75; PULSE 49; RESP 16; TEMP 36.4; O2SAT 97
[2024-03-09 12:10] VITALS: BP 150/88; PULSE 52; RESP 18; O2SAT 97
--- NOTE | 2024-03-09 14:41 | ANE.PACU2 ---
Inpatient post-anesthesia follow up: Airway intact: Yes Vital signs: Temperature 97.5 F Pulse Rate 52 Respiratory Rate 18 Blood Pressure 150/88 Pulse Oximetry 97 Oxygen Delivery Me thod Room Air Oxygen Flow Rate Fraction of Inspir ed Oxygen Hydration adequate: Yes Nausea and vomiting: No Pain level: 2 Mental status: Baseline
== END 2024-03-09 12:28 | disposition home or self-care (01) ==
PROVIDERS: PCP Nurse Practitioner Family; Visit Provider Surgery
PROC: 0DJ08ZZ Inspection of Upper Intestinal Tract, Via Natural or Artificial Opening Endoscopic (ICD-10-PCS; CPT 43235; principal; 2024-03-09 10:45)
PROC: 0DJD8ZZ Inspection of Lower Intestinal Tract, Via Natural or Artificial Opening Endoscopic (ICD-10-PCS; CPT 45378; 2024-03-09 10:45)
DX: Z12.11 Encounter for screening for malignant neoplasm of colon (principal); K64.8 Other hemorrhoids; K21.9 Gastro-esophageal reflux disease without esophagitis
CPT/HCPCS: 36416; 43239; 45378; 82962; 88305; J2704; J7030

== ENCOUNTER → 2024-04-07 09:50 | Outpatient (BNVA) | payer MEDICARE, OTHER, SELFPAY | PROVIDERS: PCP Nurse Practitioner Family; Visit Provider Surgery | DX: Z09 Encounter for follow-up examination after completed treatment for conditions other than malignant neoplasm (principal); K82.8 Other specified diseases of gallbladder; R11.2 Nausea with vomiting, unspecified; R42 Dizziness and giddiness | CPT/HCPCS: 99214 ==

== ENCOUNTER 2024-06-07 05:35 | Day surgery (SDC) | payer MEDICARE, OTHER, SELFPAY ==
[2024-06-07 06:16] VITALS: BP 197/102; PULSE 64; RESP 18; TEMP 36.5; O2SAT 97; BMI 24.8
[2024-06-07 06:31] LABS: Glucose Point of Care 211 mg/dL (70-110)
[2024-06-07] MEDS: sodium chloride 0.9% 1,000 ML 30 ML IV (06:31)
--- NOTE | 2024-06-07 06:47 | P.ANESASSM_ITS ---
Pre-Anesthetic Assessment Height/Weight: Height 1.83 m Weight 83.007 kg Temp Pulse Resp BP Pulse Ox O2 Del Method 97.7 F 64 18 197/102 97 Room Air 06/07/24 06:16 06/07/24 06:16 06/07/24 06:16 06/07/24 06:16 06/07/24 06:16 06/07/24 06:16 Operation Date: 06/07/24 07:00 Proposed Procedures p Laparoscopic Cholecystectomy 01420, K82.8(Not Applicable) - Silas Davison DO Familial anesthetic complications: None Was Beta Arianna taken within 24 hours: N/A Was Clonidine taken within 24 hours: N/A Last intake: Intake Last Liquid Date 06/06/24 Last Liquid Time 22:00 Last Solid Date 06/06/24 Last Solid Time 22:00 Social No alcohol and No tobacco Exam alert, oriented x 3, clear to auscultation bilaterally and regular rate & rhythm Airway Mallampati: Class II Dentition: false Pulmonary Asthma CV/HEM Stable Angina (atypical), Coronary Artery Disease (stents 3 years ago) and Hypertension Chronic Renal Insufficiency GI Gastroesophageal Reflux Disease Metabolic Diabetes Mellitus and Thyroid Disease Neuropsych B/L carotid stenosis (Moderate) - referred to vascular surgeon; patient states vascular surgeon was not planning surgical intervention at this time and recommended cardiac to further evaluate his symptoms. Apparently he was supposed to have an angiogram today but cancelled it for this surgery Anesthetic Plan ASA status: 4 Anesthesia: General Risk of > 500 ml blood loss (7ml/kg in children): No Other Pertinent Information Patient has been experiencing dizziness which prompted evaluation of his carotids and vascular surgery. Upon questioning the patient, in addition to dizziness the patient is unable to achieve 4 METs without SOB. I get short of breath with just about everything I do. Hx of stents, given NTG for (atypical) chest pain, DM, CKD are multiple risk factors. Given as yet potentially unexplained newer onset dizziness and inability to achieve 4 METS without cardiac symptoms discussed with patient that it would be safer for him to get cardiac clearance before gallbladder and help r/o advancing CAD or potential arrythmia. Medications/Allergies Home Medications Medication Instructions Recorded Confirmed Last Taken Type aspirin 81 mg tablet,delayed 81 mg PO DAILY 11/28/19 06/06/24 06/06/24 History release cholecalciferol (vitamin D3) 1,250 1,250 mcg PO DAILY 11/28/19 06/06/24 06/06/24 History mcg (50,000 unit) capsule nitroglycerin 0.4 mg sublingual 0.4 mg sublingual Q5M PRN Chest 11/28/19 06/06/24 Unknown History tablet (Nitrostat) Pain lancets 17 gauge #100 ea 08/19/23 04/07/24 Unknown Rx blood sugar diagnostic (Blood #50 ea 09/03/23 04/07/24 Unknown Rx Glucose Test strips) blood-glucose meter (Blood Glucose #1 ea 09/03/23 04/07/24 Unknown Rx Monitoring kit) meclizine 25 mg tablet 25 mg PO BID PRN dizziness #60 tabs 02/08/24 06/06/24 03/07/24 Rx clopidogrel 75 mg tablet 75 mg PO DAILY 03/08/24 06/06/24 06/02/24 History dulaglutide 1.5 mg/0.5 mL 1.5 mg SUBCUT .WEEKLY 03/08/24 06/06/24 05/29/24 History subcutaneous pen injector (Trulicity) metoprolol succinate 25 mg 25 mg PO DAILY 03/08/24 06/06/24 06/06/24 History tablet,extended release 24 hr rosuvastatin 40 mg tablet (Crestor) 20 mg PO DAILY 03/08/24 06/06/24 06/06/24 History Tresiba FlexTouch U-200 200 See Rx Instructions .Route 05/23/24 06/06/24 0 06/06/24 Rx unit/mL (3 mL) subcutaneous pen .COMPLEX #27 mL (insulin degludec) levothyroxine 100 mcg tablet 100 mcg PO DAILY 06/06/24 06/06/24 06/06/24 History metformin 500 mg tablet,extended 1,000 mg PO BID 06/06/24 06/06/24 06/06/24 History release 24 hr omeprazole 20 mg capsule,delayed 20 mg PO DAILY 06/06/24 06/06/24 06/06/24 History release ondansetron HCl 4 mg tablet 4 mg PO TID PRN Nausea And Vomiting 06/06/24 06/06/24 Unknown History tamsulosin 0.4 mg capsule 0.4 mg PO DAILY 06/06/24 06/06/24 06/06/24 History Allergies Allergy/AdvReac Type Severity Reaction Status Date / Time No Known Allergies Allergy Verified 03/29/24 13:39 Current Medications Generic Name Dose Route Start Last Admin Trade Name Jyotsna PRN Reason Stop Dose Admin Sodium Chloride 1,000 mls @ 30 mls/hr 06/07/24 06:15 06/07/24 06:31 Sodium Chloride 0.9% IV 06/08/24 06:14 30 mls/hr .Q24H PRO Administration PFSH Anesthesia Medical History Nocturnal polyuria Hypertriglyceridemia Hyperlipidemia Hypothyroid Diabetes Essential hypertension Surgical History Hx of colonoscopy History of shoulder surgery Family History Father , at age 80's Hypertension CAD (coronary artery disease) Mother , at age 75 Parkinson disease Social History Smoking and tobacco/nicotine status: never used tobacco/nicotine Quit status (tobacco/nicotine): has quit using Year quit tobacco: 2000 Former quit date comment: 0.5ppd x 20 years Second hand smoke exposure: No Alcohol intake: never Substance/Drug Use: never Current occupational status: retired Data Anesthesia Cardiac Studies: Echocardiogram 02/01/24
--- NOTE | 2024-06-07 07:22 | PC.NURSE ---
Surgery canceled for today per Dr. Davison.
== END 2024-06-07 07:22 | disposition home or self-care (01) ==
PROVIDERS: PCP Nurse Practitioner Family; Visit Provider Surgery
PROC: 0FT44ZZ Resection of Gallbladder, Percutaneous Endoscopic Approach (ICD-10-PCS; CPT 47562; principal; 2024-06-07 07:00)
DX: K82.8 Other specified diseases of gallbladder (principal); Z53.9 Procedure and treatment not carried out, unspecified reason
CPT/HCPCS: 36416; 82962; J7030

== ENCOUNTER → 2024-07-14 10:14 | Outpatient (BNVA) | payer MEDICARE, OTHER, SELFPAY | PROVIDERS: PCP Nurse Practitioner Family; Visit Provider Nurse Practitioner Family | DX: E11.22 Type 2 diabetes mellitus with diabetic chronic kidney disease (principal); E78.2 Mixed hyperlipidemia; I10 Essential (primary) hypertension; N40.0 Benign prostatic hyperplasia without lower urinary tract symptoms | CPT/HCPCS: 80053; 80061; 83036; 84153; 85025 ==

== ENCOUNTER 2024-12-08 10:07 | Outpatient (CLI) | payer MEDICARE, OTHER, SELFPAY ==
[2024-12-08 11:10] LABS: Basophils % 0.4 %; Eosinophils # 0.2 10^3/uL (0.0-0.8); Hematocrit 36.3 % (37-53); Lymphocytes # 1.4 10^3/uL (0.8-4.8); Lymphocytes % 20.3 %; Mean Corpuscular HGB Conc 32.2 g/dL (30-55); Mean Corpuscular Hemoglobin 27.9 pg (27-33); Mean Corpuscular Volume 86.4 fl (82-101); Mean Platelet Volume 9.3 fL (7.4-10.4); Monocytes # 0.4 10^3/uL (0.2-0.9); Monocytes % 5.1 %; Neutrophils # 4.94 10^3/uL (1.8-7.7); Neutrophils % 70.5 %; Nucleated Red Blood Cells % 0 %; Platelet Count 230 10^3/cmm (157-399); Red Cell Distribution Width 12.5 % (12.1-15.1); White Blood Count 7.01 10^3/uL (3.29-11.43)
[2024-12-08 11:29] LABS: Blood Urea Nitrogen 16 mg/dL (8-23); Calcium 9.4 mg/dL (8.5-10.5); Carbon Dioxide 27 mmol/L (22-29); Chloride 104 mmol/L (98-107); Glucose 171 mg/dL (65-115); Phosphorus 2.9 mg/dL (2.5-4.5); Sodium 138 mmol/L (136-145)
[2024-12-08 11:31] LABS: Creatinine Urine, Random 124 mg/dL (39-259); Microalbumin Random Urine 9 ug/dL (0-20)
[2024-12-08 11:34] LABS: Microalbum Creatinine Ratio Ur 73 mg/dL (0-20)
[2024-12-08 11:34] LABS: Calcium 9.4 mg/dL (8.5-10.5)
[2024-12-08 11:41] LABS: Parathyroid Hormone 37.2 pg/mL (15-65)
[2024-12-08 11:46] LABS: 25 Hydroxy Vitamin D 33 ng/mL (30-100)
== END 2024-12-08 10:08 | disposition home or self-care (01) ==
LOC: LAB 10:35
PROVIDERS: PCP Nurse Practitioner Family; Visit Provider Internal Medicine Nephrology
DX: N18.32 Chronic kidney disease, stage 3b (principal)
CPT/HCPCS: 36415; 80069; 82044; 82306; 82310; 83970; 85025

== ENCOUNTER → 2025-01-11 09:35 | Outpatient (BNVA) | payer MEDICARE, OTHER, SELFPAY | PROVIDERS: PCP Nurse Practitioner Family; Visit Provider Surgery | DX: R03.0 Elevated blood-pressure reading, without diagnosis of hypertension (principal) | CPT/HCPCS: 99214 ==

== ENCOUNTER → 2025-02-21 09:19 | Outpatient (BNVA) | payer MEDICARE, OTHER, SELFPAY | PROVIDERS: PCP Nurse Practitioner Family; Visit Provider Surgery | DX: K82.8 Other specified diseases of gallbladder (principal) | CPT/HCPCS: 99213 ==

== ENCOUNTER → 2025-03-06 09:37 | Outpatient (BNVA) | payer MEDICARE, OTHER, SELFPAY | PROVIDERS: PCP Nurse Practitioner Family; Visit Provider Nurse Practitioner Family | DX: E03.9 Hypothyroidism, unspecified (principal) | CPT/HCPCS: 84443 ==

== ENCOUNTER → 2025-03-22 16:01 | Outpatient (BNVA) | payer MEDICARE, OTHER, SELFPAY | PROVIDERS: PCP Nurse Practitioner Family; Visit Provider Nurse Practitioner Family | DX: E11.22 Type 2 diabetes mellitus with diabetic chronic kidney disease (principal); R53.83 Other fatigue; W57.XXXA Bitten or stung by nonvenomous insect and other nonvenomous arthropods, initial encounter; I10 Essential (primary) hypertension; L03.114 Cellulitis of left upper limb | CPT/HCPCS: 80053; 83036; 85025; 86003; 86008; 86618; 86666; 86757 ==

== ENCOUNTER → 2025-06-20 07:58 | Outpatient (BNVA) | payer MEDICARE, OTHER, SELFPAY | PROVIDERS: PCP Nurse Practitioner Family; Visit Provider Surgery | DX: K31.84 Gastroparesis (principal); K21.9 Gastro-esophageal reflux disease without esophagitis; R11.2 Nausea with vomiting, unspecified; R11.15 Cyclical vomiting syndrome unrelated to migraine | CPT/HCPCS: 99213 ==

== ENCOUNTER 2025-07-11 11:46 | Outpatient (CLI) | payer MEDICARE, OTHER, SELFPAY ==
[2025-07-11 12:48] LABS: Hematocrit 34.3 % (37-53); Hemoglobin 11.30 g/dL (11.27-16.99); Mean Corpuscular HGB Conc 32.9 g/dL (30-55); Mean Corpuscular Hemoglobin 28.5 pg (27-33); Mean Corpuscular Volume 86.4 fl (82-101); Nucleated Red Blood Cells % 0 %; Platelet Count 175 10^3/cmm (157-399); Red Blood Count 3.97 10^6/uL (3.85-5.65); White Blood Count 7.38 10^3/uL (3.29-11.43)
[2025-07-11 13:12] LABS: Albumin Level 4.2 g/dL (3.5-5.2); Anion Gap 14.2 (5-19); Blood Urea Nitrogen 23 mg/dL (8-23); Calcium 9.5 mg/dL (8.5-10.5); Carbon Dioxide 26 mmol/L (22-29); Chloride 105 mmol/L (98-107); Glucose 141 mg/dL (65-115); Potassium 5.2 mmol/L (3.5-5.1); Sodium 140 mmol/L (136-145)
[2025-07-11 13:13] LABS: Creatinine Urine, Random 155 mg/dL (39-259)
[2025-07-11 13:14] LABS: Microalbum Creatinine Ratio Ur 90 mg/dL (0-20)
[2025-07-11 13:24] LABS: Calcium 9.5 mg/dL (8.5-10.5)
== END 2025-07-11 11:47 | disposition home or self-care (01) ==
LOC: LAB 11:48
PROVIDERS: PCP Nurse Practitioner Family; Visit Provider Registered Nurse
DX: I12.9 Hypertensive chronic kidney disease with stage 1 through stage 4 chronic kidney disease, or unspecified chronic kidney disease (principal); N18.31 Chronic kidney disease, stage 3a
CPT/HCPCS: 36415; 80069; 82044; 82310; 83970; 85025

== ENCOUNTER → 2025-07-27 10:15 | Outpatient (BNVA) | payer MEDICARE, OTHER, SELFPAY | PROVIDERS: PCP Nurse Practitioner Family; Visit Provider Nurse Practitioner Family | DX: I10 Essential (primary) hypertension (principal); E11.22 Type 2 diabetes mellitus with diabetic chronic kidney disease | CPT/HCPCS: 80053; 80061; 83036; 84443 ==

== ENCOUNTER 2025-08-10 08:59 | Outpatient (CLI) | payer MEDICARE, OTHER, SELFPAY ==
--- NOTE | 2025-08-10 09:15 | USR_ITS ---
PROCEDURE INFORMATION: Exam: US Duplex Bilateral Lower Extremity Arteries Exam date and time: 08/10/2025 9:22 AM Age: 74 years old Clinical indication: Other: Claudication; Additional info: I73.9 - peripheral vascular disease, unspecified TECHNIQUE: Imaging protocol: Real-time ultrasound scan of the arteries of the bilateral lower extremities with 2-D hodge scale, color Doppler flow and spectral waveform analysis. Images documented and saved. COMPARISON: No relevant prior studies available. FINDINGS: Right common femoral artery: No occlusion or significant stenosis. Normal waveform. Peak systolic velocity 96 cm/sec. Right superficial femoral artery: No occlusion or significant stenosis. Normal waveform. Peak systolic velocity 63-94 cm/sec. Right popliteal artery: No occlusion or significant stenosis. Normal waveform. Peak systolic velocity 63 cm/sec. Right calf/foot arteries: No occlusion or significant stenosis in the visualized arteries. Biphasic waveforms. Dorsalis pedis artery is patent. Right RAHUL 0.78. Left common femoral artery: No occlusion or significant stenosis. Normal waveform. Peak systolic velocity 90 cm/sec. Left superficial femoral artery: No occlusion or significant stenosis. Normal waveform. Peak systolic velocity 56-92 cm/sec. Left popliteal artery: No occlusion or significant stenosis. Normal waveform. Peak systolic velocity 60 cm/sec. Left calf/foot arteries: No occlusion or significant stenosis in the visualized arteries. Biphasic waveforms. Dorsalis pedis artery is patent. Left RAHUL 0.90. Other findings: Atherosclerotic plaques within the common iliac arteries bilaterally. US/CV arterial duplex [facility] [id number] IMPRESSION: 1. Decreased ABIs bilaterally, compatible with [id number] peripheral arterial disease. 2. No hemodynamically significant stenosis or occlusion within the lower extremity arteries.
== END 2025-08-10 09:00 | disposition home or self-care (01) ==
LOC: RAD 09:00
PROVIDERS: PCP Nurse Practitioner Family; Visit Provider Nurse Practitioner Family
DX: I73.9 Peripheral vascular disease, unspecified (principal); R94.39 Abnormal result of other cardiovascular function study
CPT/HCPCS: 93925

== ENCOUNTER 2025-09-05 07:34 | Outpatient (CLI) | payer MEDICARE, OTHER, SELFPAY ==
--- NOTE | 2025-09-05 08:00 | NM_ITS ---
WS: [id number] NUCLEAR MEDICINE GASTRIC STUDY CLINICAL INFORMATION: gastroparesis TECHNIQUE: Following oral ingestion of cooked egg mixed with 1.1 mCi technetium 99m sulfur colloid, anterior images of the stomach were obtained over the course of 90 minutes. Activity curve was performed over the course of 90 minutes with linear regression analysis. COMPARISON: None. FINDINGS: Ingestion of cooked egg mixture T 1/2 emptying 354 minutes (normal 45-110) 11% emptying at 61 minutes 60% emptying at 114 minutes NM/[place] [id number] IMPRESSION: Significantly delayed gastric emptying. Recommend correlation for gastroparesis *Normal median T1 half 90 minutes for solid egg meal (45-110 minutes). Delayed gastric retention is defined as 90% retained at 1 hour, 60% at 2 hour s, 30% at 3 hours, and 10% at 4 hours (normal percent gastric retention is 37-9 0% at 1 hour, 30-60% at 2 hours, and 0-10% at 4 hours).
== END 2025-09-05 07:35 | disposition home or self-care (01) ==
LOC: RAD 07:36
PROVIDERS: PCP Nurse Practitioner Family; Visit Provider Surgery
DX: K31.84 Gastroparesis (principal)
CPT/HCPCS: 78264; A9541

== ENCOUNTER → 2025-09-13 13:52 | Outpatient (BNVA) | payer MEDICARE, OTHER, SELFPAY | PROVIDERS: PCP Nurse Practitioner Family; Visit Provider Surgery | DX: K80.50 Calculus of bile duct without cholangitis or cholecystitis without obstruction (principal) | CPT/HCPCS: 99213 ==

== ENCOUNTER 2025-10-04 07:34 | Outpatient (CLI) | payer MEDICARE, OTHER, SELFPAY ==
--- NOTE | 2025-10-04 07:44 | US_ITS ---
WS: [id number] RIGHT UPPER QUADRANT ULTRASOUND HISTORY: biliary colic COMPARISON: 02/04/2024 Liver: 15.2 cm in length. Normal size liver and echogenicity. No bile duct dilatation or mass. Portal Vein: Normal hepatopetal flow with monophasic waveform. Gallbladder: Distended gallbladder. There is mild gallbladder wall thickening but no pericholecystic fluid. CBD: 0.2 cm Pancreas: Portions of the head and tail are obscured. The body is negative. Right kidney: 9.2 cm in length. Normal size and echogenicity. No hydronephrosis or mass. Aorta and IVC: Unremarkable abdominal aorta and IVC. No ascites. US/US gall bladder [id number] IMPRESSION: 1. No cholelithiasis. 2. Gallbladder wall is top normal size and echogenic. This can be seen with ch ronic cholecystitis. No evidence for acute cholecystitis. 3. No intrahepatic duct dilatation.
== END 2025-10-04 07:35 | disposition home or self-care (01) ==
LOC: RAD 07:35
PROVIDERS: PCP Nurse Practitioner Family; Visit Provider Surgery
DX: K80.50 Calculus of bile duct without cholangitis or cholecystitis without obstruction (principal)
CPT/HCPCS: 76705